=== PATIENT | male | born 2000 | race Caucasian/White ===

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

== ENCOUNTER 2024-05-20 08:35 | Outpatient (CLI) | payer OTHER, SELFPAY ==
--- NOTE | 2024-05-20 08:44 | US_ITS ---
WS: [id number] INDICATION: Submandibular lymph node TECHNIQUE: Ultrasound soft tissue FINDINGS: Ultrasound soft tissue area of concern RIGHT submandibular area. Few lymph nodes visualized in the area of concern the largest measuring up to 1.7 cm likely reactive in a patient of this age. Indeterminate nodule in the area of patient directed lump measuring 3.0 x 2.4 cm may represent an additional irregular enlarged lymph node but indeterminate. This is in the area of the submandibular gland. Recommend further evaluation with contrast-enhanced neck CT for better detail. US/US soft tissue head neck [id number] IMPRESSION: Recommend further evaluation with contrast-enhanced neck CT.
== END 2024-05-20 08:36 | disposition home or self-care (01) ==
PROVIDERS: PCP Nurse Practitioner Family; Visit Provider Nurse Practitioner Family
DX: R59.0 Localized enlarged lymph nodes (principal); R93.89 Abnormal findings on diagnostic imaging of other specified body structures
CPT/HCPCS: 76536